=== PATIENT | female | born 2000 | race Caucasian/White ===

== ENCOUNTER 2019-05-04 10:37 | Emergency (ER) | payer OTHER ==
[2019-05-04] MEDS ORDERED: Ketorolac Tromethamine 30 MG/ML VIAL ONE (10:58)
--- NOTE | 2019-05-04 11:34 | RAD ---
LEFT FOOT THREE VIEWS: HISTORY: Injury with pain. FINDINGS: The tarsals, metatarsals, and phalanges appear intact. No osseous abnormality identified. IMPRESSION: No acute abnormality. POS: GEE
== END 2019-05-04 11:41 | disposition home or self-care (01) ==
LOC: SCSER 10:37
DX: S93.602A Unspecified sprain of left foot, initial encounter (principal); X50.1XXA Overexertion from prolonged static or awkward postures, initial encounter
CPT/HCPCS: 96372; J1885